=== PATIENT | female | born 1980 | race Caucasian/White ===

== ENCOUNTER → 2018-05-19 | Outpatient (CLI) | payer OTHER ==
[~2018-05-19] MED LIST: DOCU-131 PO; HYDR-3240 PO; IBUP-1223 PO; IBUP200T49 PO; PREN1TAB79 PO
== END | disposition home or self-care (01) ==
LOC: CFH 13:22
PROVIDERS: ATTEND Family Medicine
DX: N64.4 Mastodynia (principal); R92.2 Inconclusive mammogram; M54.9 Dorsalgia, unspecified; Z80.3 Family history of malignant neoplasm of breast
CPT/HCPCS: 72100; 73523; 77065